=== PATIENT | female | born 1955 | race Caucasian/White ===

== ENCOUNTER 2022-12-08 22:41 | Emergency (ER) | payer MEDICAID ==
[~2022-12-08] VITALS: Ht 157.5 cm; Wt 74.0 kg
[2022-12-08 23:13] VITALS: BP 111/60
== END 2022-12-09 01:40 | disposition home or self-care (01) ==
LOC: ER 22:41
DX: S99.911A Unspecified injury of right ankle, initial encounter (principal); Z86.59 Personal history of other mental and behavioral disorders; Z98.890 Other specified postprocedural states; W18.30XA Fall on same level, unspecified, initial encounter; Y93.89 Activity, other specified; Y92.89 Other specified places as the place of occurrence of the external cause; Y99.8 Other external cause status
CPT/HCPCS: 29515; 73610; 73630; 99284

== ENCOUNTER 2025-06-18 08:35 | Emergency (ER) | payer MEDICAID, OTHER ==
[~2025-06-18] VITALS: Ht 167.6 cm; Wt 80.0 kg
[2025-06-18 08:49] VITALS: O2SAT 100
[2025-06-18 10:41] VITALS: BP 115/56; PULSE 90; RESP 16; TEMP 36.7; O2SAT 100
== END 2025-06-18 10:46 | disposition home or self-care (01) ==
LOC: ER 08:35
DX: S42.292A Other displaced fracture of upper end of left humerus, initial encounter for closed fracture (principal); G80.9 Cerebral palsy, unspecified; W01.0XXA Fall on same level from slipping, tripping and stumbling without subsequent striking against object, initial encounter; Y93.89 Activity, other specified; Y92.89 Other specified places as the place of occurrence of the external cause; Y99.8 Other external cause status
CPT/HCPCS: 73030; 73080; 99284; A4565